=== PATIENT | male | born 1975 | race Caucasian/White ===

== ENCOUNTER 2021-03-06 12:15 | Inpatient (IN) | payer MEDICAID, OTHER ==
[~2021-03-06] VITALS: Ht 175.3 cm; Wt 98.7 kg
[~2021-03-06 12:15] MED LIST: CEPH-582 PO; CLIN300C3 PO
[2021-03-06] MEDS ORDERED: DEXTROSE 50%-WATER 25 GM/50 ML SYRINGE IVP PRN (14:30)
[2021-03-06] MEDS ORDERED: OxyCODONE HCL/ACETAMINOPHEN 5-325 MG TABLET PO PRN (14:45)
[2021-03-06] MEDS ORDERED: ZOLPIDEM TARTRATE 5 MG TABLET PO PRN (14:45)
[2021-03-06] MEDS ORDERED: ONDANSETRON HCL 4 MG/2 ML VIAL IVP PRN ×2 (14:45)
[2021-03-06] MEDS ORDERED: ACETAMINOPHEN 325 MG TABLET PO PRN ×2 (14:45)
[2021-03-06] MEDS ORDERED: 0.9% SODIUM CHLORIDE 10 ML SYRINGE IVP PRN (14:45)
[2021-03-06] MEDS ORDERED: ONDANSETRON HCL 4 MG/2 ML VIAL IVP ONE (14:45)
[2021-03-06] MEDS ORDERED: VANCOMYCIN HCL 1.5 GM in DEXTROSE 5%-WATER 250 ML IV ONE (15:00)
[2021-03-06] MEDS: SODIUM CHLORIDE 0.9% 1,000 ML IV SCH ×2 (17:46→23:07)
[2021-03-06] MEDS: MORPHINE SULFATE 4 MG/ML SYRINGE IVP ONE ×2 (17:48→21:00)
[2021-03-06] MEDS: HEPARIN SODIUM,PORCINE 5,000 UNITS/ML VIAL SQ SCH ×2 (17:48→23:06)
[2021-03-06] MEDS ORDERED: SODIUM CHLORIDE 0.9% 1,000 ML IV ONE (18:15)
[2021-03-06 18:18] LABS: BASOPHILS % (AUTO) 0.4 % (0.0-2.0); EOSINOPHILS % (AUTO) 0.1 % (1.0-6.0); HEMATOCRIT 43.4 % (41-53); HEMOGLOBIN 14.3 g/dL (13.5-17.5); LYMPHOCYTES # (AUTO) 1.2 K/uL (1.0-4.8); LYMPHOCYTES % (AUTO) 6.6 % (22.0-44.0); MEAN CORPUSCULAR HEMOGLOBIN 29.2 pg (26.0-34.0); MEAN CORPUSCULAR VOLUME 89 fL (80-100); MONOCYTES % (AUTO) 5.4 % (2.0-9.0); RED CELL DISTRIBUTION WIDTH 13.5 % (11.5-14.5)
[2021-03-06 18:30] LABS: NEUTROPHILS % (AUTO) 87.5 % (40.0-70.0)
[2021-03-06 18:52] LABS: PLATELET COUNT (AUTO) 226 K/uL (150-450)
[2021-03-06] MEDS: DOCUSATE SODIUM 100 MG CAPSULE PO SCH (21:00)
[2021-03-06 21:09] LABS: COVID AG,FIA SOURCE NASOPHARYNGEAL
[2021-03-06 21:17] LABS: APPEARANCE,URINE CLEAR (CLEAR); BILIRUBIN,URINE NEGATIVE (NEGATIVE); GLUCOSE, URINE (UA) 100 mg/dL (NEGATIVE); KETONES,URINE TRACE mg/dL (NEGATIVE); LEUKOCYTE ESTERASE ,URINE NEGATIVE (NEGATIVE); NITRATE,URINE NEGATIVE (NEGATIVE); OCCULT BLOOD,URINE NEGATIVE (NEGATIVE); PH,URINE 7.5 (5.0-8.0); PROTEIN,URINE NEGATIVE (NEGATIVE)
[2021-03-06 21:31] LABS: AMPHET/METH SCREEN,URINE POSITIVE (NEGATIVE); BARBITURATE SCREEN, URINE NEGATIVE (NEGATIVE); BENZODIAZEPINES SCREEN,URINE NEGATIVE (NEGATIVE); CANNABINOID SCREEN,URINE NEGATIVE (NEGATIVE); COCAINE SCREEN,URINE NEGATIVE (NEGATIVE); METHADONE SCREEN, URINE NEGATIVE (NEGATIVE); OPIATE SCREEN,URINE NEGATIVE (NEGATIVE)
[2021-03-06 21:33] LABS: PHENCYCLIDINE SCREEN,URINE NEGATIVE (NEGATIVE)
[2021-03-06 21:45] LABS: BACTERIA,URINE None Seen /HPF (None Seen); RBC,URINE None Seen /HPF (0-2)
[2021-03-06 22:34] LABS: ALANINE AMINOTRANSFERASE 24 U/L (12-78); ALBUMIN 3.2 g/dL (3.4-5.0); ALKALINE PHOSPHATASE 113 U/L (46-116); ANION GAP 3 mmol/L (8-16); ASPARTATE AMINOTRANSFERASE 13 U/L (15-37); BILIRUBIN,TOTAL 1.3 mg/dL (0.1-1.0); CALCIUM, TOTAL 8.6 mg/dL (8.8-10.5); CARBON DIOXIDE 31 mmol/L (22-29); CHLORIDE 97 mmol/L (98-107); CREATININE 1.24 mg/dL (0.60-1.30); GLOMERULAR FILTR. RATE CALC > 60 mL/min (>60); GLUCOSE,RANDOM 196 mg/dL (70-110); POTASSIUM 4.3 mmol/L (3.5-5.1); SODIUM SERUM 131 mmol/L (136-145); TOTAL PROTEIN, SERUM 7.2 g/dL (6.4-8.2); UREA NITROGEN, BLOOD 14 mg/dL (7-18)
[2021-03-06 23:00] VITALS: BP 154/78
[2021-03-06] MEDS: OxyCODONE HCL/ACETAMINOPHEN 5-325 MG TABLET PO PRN (23:06)
[2021-03-06] MEDS ORDERED: VANCOMYCIN HCL 1 GM/D5% WATER 200 ML IV ONE (23:59)
[2021-03-07 05:59] VITALS: BP 122/76
[2021-03-07] MEDS: SODIUM CHLORIDE 0.9% 1,000 ML IV SCH ×3 (06:45→23:51)
[2021-03-07 07:08] LABS: GLUCOMETER DEV NAME(LOC) 5S.2B; GLUCOSE,POINT OF CARE 104 MG/DL (70-110)
[2021-03-07 07:45] VITALS: BP 121/74
[2021-03-07] MEDS: FAMOTIDINE 20 MG TABLET PO SCH (08:31)
[2021-03-07] MEDS: DOCUSATE SODIUM 100 MG CAPSULE PO SCH ×2 (08:31→20:28)
[2021-03-07] MEDS: HEPARIN SODIUM,PORCINE 5,000 UNITS/ML VIAL SQ SCH ×3 (08:31→23:52)
[2021-03-07] MEDS: VANCOMYCIN HCL 1 GM/D5% WATER 200 ML IV SCH ×3 (08:31→23:51)
[2021-03-07 11:13] VITALS: BP 117/72
[2021-03-07 12:01] LABS: ANION GAP 7 mmol/L (8-16); CALCIUM, TOTAL 8.2 mg/dL (8.8-10.5); CARBON DIOXIDE 26 mmol/L (22-29); CHLORIDE 100 mmol/L (98-107); CREATININE 1.02 mg/dL (0.60-1.30); GLOMERULAR FILTR. RATE CALC > 60 mL/min (>60); GLUCOSE,RANDOM 182 mg/dL (70-110); POTASSIUM 3.7 mmol/L (3.5-5.1); SODIUM SERUM 133 mmol/L (136-145); UREA NITROGEN, BLOOD 12 mg/dL (7-18)
[2021-03-07 15:59] VITALS: BP 116/70
[2021-03-07 17:41] LABS: GLUCOMETER DEV NAME(LOC) 5S.2B; GLUCOSE,POINT OF CARE 151 MG/DL (70-110)
[2021-03-07] MEDS: INSULIN LISPRO 100 UNITS/ML SQ PRN (18:04)
[2021-03-07 19:31] VITALS: BP 120/70
[2021-03-08] VITALS (7 sets, daily range): BP systolic 109–124; BP diastolic 70–91
[2021-03-08] MEDS: SODIUM CHLORIDE 0.9% 1,000 ML IV SCH ×3 (03:00→16:33)
[2021-03-08 04:17] LABS: GLUCOMETER DEV NAME(LOC) 5S.2B; GLUCOSE,POINT OF CARE 202 MG/DL (70-110)
[2021-03-08 04:17] LABS: GLUCOMETER DEV NAME(LOC) 5S.2B; GLUCOSE,POINT OF CARE 140 MG/DL (70-110)
[2021-03-08] MEDS: DOCUSATE SODIUM 100 MG CAPSULE PO SCH ×2 (08:34→20:43)
[2021-03-08] MEDS: VANCOMYCIN HCL 1 GM/D5% WATER 200 ML IV SCH ×2 (08:34→16:32)
[2021-03-08] MEDS: HEPARIN SODIUM,PORCINE 5,000 UNITS/ML VIAL SQ SCH ×2 (08:35→16:00)
[2021-03-08 09:02] LABS: ANION GAP 3 mmol/L (8-16); CALCIUM, TOTAL 8.2 mg/dL (8.8-10.5); CARBON DIOXIDE 30 mmol/L (22-29); CHLORIDE 103 mmol/L (98-107); CREATININE 0.94 mg/dL (0.60-1.30); GLOMERULAR FILTR. RATE CALC > 60 mL/min (>60); GLUCOSE,RANDOM 145 mg/dL (70-110); POTASSIUM 3.8 mmol/L (3.5-5.1); SODIUM SERUM 136 mmol/L (136-145); UREA NITROGEN, BLOOD 11 mg/dL (7-18); VANCOMYCIN,RANDOM 10.7 mcg/mL (25.0-50.0)
[2021-03-08] MEDS: FAMOTIDINE 20 MG TABLET PO SCH (10:24)
[2021-03-08] MEDS: PIPERACILLIN/TAZO 3.375 GM/D5W 50 ML IV SCH ×3 (11:59→23:00)
[2021-03-08] MEDS: OxyCODONE HCL/ACETAMINOPHEN 5-325 MG TABLET PO PRN (16:31)
[2021-03-08] MEDS: INSULIN LISPRO 100 UNITS/ML SQ PRN (17:52)
[2021-03-08 21:20] LABS: GLUCOMETER DEV NAME(LOC) 5N.3; GLUCOSE,POINT OF CARE 138 MG/DL (70-110)
[2021-03-09 02:05] LABS: GLUCOMETER DEV NAME(LOC) 5S.1; GLUCOSE,POINT OF CARE 109 MG/DL (70-110)
[2021-03-09 02:06] LABS: GLUCOMETER DEV NAME(LOC) 5S.1; GLUCOSE,POINT OF CARE 168 MG/DL (70-110)
[2021-03-09 04:00] VITALS: BP 111/59
[2021-03-09] MEDS: PIPERACILLIN/TAZO 3.375 GM/D5W 50 ML IV SCH ×4 (05:23→22:14)
[2021-03-09] MEDS: INSULIN LISPRO 100 UNITS/ML SQ PRN ×4 (06:09→21:04)
[2021-03-09] MEDS: SODIUM CHLORIDE 0.9% 1,000 ML IV SCH ×3 (06:45→22:14)
[2021-03-09 06:57] LABS: BASOPHILS % (AUTO) 0.6 % (0.0-2.0); EOSINOPHILS % (AUTO) 4.6 % (1.0-6.0); HEMATOCRIT 36.9 % (41-53); HEMOGLOBIN 12.4 g/dL (13.5-17.5); LYMPHOCYTES # (AUTO) 1.6 K/uL (1.0-4.8); MEAN CORPUSCULAR HEMOGLOBIN 29.2 pg (26.0-34.0); MEAN CORPUSCULAR HGB CONC 33.5 G/dL (31.0-37.0); MEAN CORPUSCULAR VOLUME 87 fL (80-100); MONOCYTES # (AUTO) 0.5 K/uL (0.1-1.0); MONOCYTES % (AUTO) 7.8 % (2.0-9.0); NEUTROPHILS # (AUTO) 4.5 K/uL (1.8-7.7); PLATELET COUNT (AUTO) 246 K/uL (150-450); RED BLOOD CELL COUNT(AUTO) 4.24 MIL/uL (4.50-5.90); RED CELL DISTRIBUTION WIDTH 13.3 % (11.5-14.5)
[2021-03-09 07:00] LABS: ANION GAP 9 mmol/L (8-16); CALCIUM, TOTAL 8.4 mg/dL (8.8-10.5); CARBON DIOXIDE 27 mmol/L (22-29); CHLORIDE 102 mmol/L (98-107); CREATININE 0.96 mg/dL (0.60-1.30); GLOMERULAR FILTR. RATE CALC > 60 mL/min (>60); GLUCOSE,RANDOM 283 mg/dL (70-110); POTASSIUM 3.6 mmol/L (3.5-5.1); SODIUM SERUM 138 mmol/L (136-145); UREA NITROGEN, BLOOD 11 mg/dL (7-18)
[2021-03-09 07:07] VITALS: BP 122/62
[2021-03-09 07:09] VITALS: BP 98/62
[2021-03-09 08:00] LABS: GLUCOMETER DEV NAME(LOC) 5S.1; GLUCOSE,POINT OF CARE 275 MG/DL (70-110)
[2021-03-09] MEDS: DOCUSATE SODIUM 100 MG CAPSULE PO SCH ×2 (08:03→20:53)
[2021-03-09] MEDS: VANCOMYCIN HCL 1 GM/D5% WATER 200 ML IV SCH ×3 (08:03→16:14)
[2021-03-09] MEDS: FAMOTIDINE 20 MG TABLET PO SCH (08:04)
[2021-03-09] MEDS: HEPARIN SODIUM,PORCINE 5,000 UNITS/ML VIAL SQ SCH ×3 (08:04→16:14)
[2021-03-09 11:25] VITALS: BP 111/76
[2021-03-09 15:01] VITALS: BP 106/72
[2021-03-09 17:30] LABS: GLUCOMETER DEV NAME(LOC) 5N.1C; GLUCOSE,POINT OF CARE 183 MG/DL (70-110)
[2021-03-09 17:51] LABS: GLUCOMETER DEV NAME(LOC) 5N.1C; GLUCOSE,POINT OF CARE 225 MG/DL (70-110)
[2021-03-09 19:55] VITALS: BP 109/59
[2021-03-10 00:18] LABS: GLUCOMETER DEV NAME(LOC) 5S.1; GLUCOSE,POINT OF CARE 203 MG/DL (70-110)
[2021-03-10 00:23] VITALS: BP 105/60
[2021-03-10] MEDS: HEPARIN SODIUM,PORCINE 5,000 UNITS/ML VIAL SQ SCH ×2 (00:28→08:00)
[2021-03-10] MEDS: VANCOMYCIN HCL 1 GM/D5% WATER 200 ML IV SCH ×2 (00:29→07:59)
[2021-03-10 05:18] VITALS: BP 121/79
[2021-03-10] MEDS: PIPERACILLIN/TAZO 3.375 GM/D5W 50 ML IV SCH ×2 (05:43→11:30)
[2021-03-10] MEDS: INSULIN LISPRO 100 UNITS/ML SQ PRN ×2 (05:44→11:47)
[2021-03-10 06:20] LABS: BASOPHILS % (AUTO) 0.6 % (0.0-2.0); EOSINOPHILS % (AUTO) 5.4 % (1.0-6.0); HEMATOCRIT 39.9 % (41-53); HEMOGLOBIN 13.4 g/dL (13.5-17.5); LYMPHOCYTES # (AUTO) 2.2 K/uL (1.0-4.8); LYMPHOCYTES % (AUTO) 30.5 % (22.0-44.0); MEAN CORPUSCULAR HEMOGLOBIN 29.6 pg (26.0-34.0); MEAN CORPUSCULAR HGB CONC 33.5 G/dL (31.0-37.0); MEAN CORPUSCULAR VOLUME 88 fL (80-100); MONOCYTES # (AUTO) 0.6 K/uL (0.1-1.0); MONOCYTES % (AUTO) 8.6 % (2.0-9.0); NEUTROPHILS # (AUTO) 3.9 K/uL (1.8-7.7); NEUTROPHILS % (AUTO) 54.9 % (40.0-70.0); PLATELET COUNT (AUTO) 300 K/uL (150-450); RED BLOOD CELL COUNT(AUTO) 4.52 MIL/uL (4.50-5.90); RED CELL DISTRIBUTION WIDTH 13.5 % (11.5-14.5)
[2021-03-10 06:39] LABS: ANION GAP 4 mmol/L (8-16); CALCIUM, TOTAL 8.6 mg/dL (8.8-10.5); CARBON DIOXIDE 29 mmol/L (22-29); CHLORIDE 105 mmol/L (98-107); CREATININE 0.94 mg/dL (0.60-1.30); GLOMERULAR FILTR. RATE CALC > 60 mL/min (>60); GLUCOSE,RANDOM 178 mg/dL (70-110); SODIUM SERUM 138 mmol/L (136-145); UREA NITROGEN, BLOOD 9 mg/dL (7-18); VANCOMYCIN,RANDOM 18.8 mcg/mL (25.0-50.0)
[2021-03-10] MEDS: SODIUM CHLORIDE 0.9% 1,000 ML IV SCH ×2 (06:45→14:45)
[2021-03-10 06:50] LABS: HEMOGLOBIN A1C 6.5 % (3.8-5.6)
[2021-03-10 07:37] VITALS: BP 112/71
[2021-03-10] MEDS: DOCUSATE SODIUM 100 MG CAPSULE PO SCH (08:00)
[2021-03-10] MEDS: FAMOTIDINE 20 MG TABLET PO SCH (08:00)
[2021-03-10 11:11] VITALS: BP 113/71
[2021-03-10 14:54] LABS: GLUCOMETER DEV NAME(LOC) 5S.1; GLUCOSE,POINT OF CARE 185 MG/DL (70-110)
[2021-03-10 20:35] LABS: GLUCOMETER DEV NAME(LOC) 5N.3; GLUCOSE,POINT OF CARE 185 MG/DL (70-110)
== END 2021-03-10 16:30 | DRG 720 ==
LOC: EMS 12:21 → 5S 21:00
PROVIDERS: ADMIT Internal Medicine; ATTEND Internal Medicine
DX: A41.9 Sepsis, unspecified organism (principal); E87.1 Hypo-osmolality and hyponatremia; L03.115 Cellulitis of right lower limb; Z20.822 Contact with and (suspected) exposure to COVID-19; T63.391A Toxic effect of venom of other spider, accidental (unintentional), initial encounter; E11.65 Type 2 diabetes mellitus with hyperglycemia; Z59.00 Homelessness unspecified; Z79.4 Long term (current) use of insulin; Z83.3 Family history of diabetes mellitus; Y92.89 Other specified places as the place of occurrence of the external cause
CPT/HCPCS: 80048; 80053; 80202; 81001; 82962; 83036; 85025; 87040; 87070; 87077; 87186; 87205; 93005; 99285; G0378; J1644; J2270; J2405; J2543; J3370; J7030; J7060

== ENCOUNTER 2021-10-22 06:57 | Emergency (ER) | payer OTHER ==
[~2021-10-22] VITALS: Ht 170.2 cm; Wt 91.9 kg
[~2021-10-22 06:57] MED LIST changes: -CLIN300C3 PO; +CLIN300C58 PO
[2021-10-22] MEDS ORDERED: CeFAZolin 1 GM/DEXTROSE 50 ML IV ONE (07:15)
[2021-10-22] MEDS ORDERED: LIDOCAINE 1% 20 ML VIAL ID ONE (07:15)
[2021-10-22] MEDS ORDERED: LIDOCAINE 1% 10 ML VIAL ONE (07:15)
[2021-10-22] MEDS ORDERED: PERTUSS(ACELL),DIPH,TET VAC/PF 0.5 ML SYRINGE IM. ONE (07:15)
[2021-10-22] MEDS ORDERED: HYDROGEN PEROXIDE 118 ML SOLUTION ONE (08:15)
[2021-10-22] MEDS ORDERED: HYDROGEN PEROXIDE 118 ML SOLUTION TP ONE (08:15)
[2021-10-22] MEDS ORDERED: IBUP-2070 PO (10:17)
[2021-10-22] MEDS ORDERED: CEPH-558 PO ×2 (10:17→10:25)
[2021-10-22 11:07] VITALS: BP 148/88
== END 2021-10-22 11:08 | disposition home or self-care (01) ==
LOC: EMS 06:58
DX: S01.511A Laceration without foreign body of lip, initial encounter (principal); E11.9 Type 2 diabetes mellitus without complications; X58.XXXA Exposure to other specified factors, initial encounter; Y93.89 Activity, other specified; Y92.89 Other specified places as the place of occurrence of the external cause; Y99.8 Other external cause status
CPT/HCPCS: 12011; 90471; 90715; 96365; 99284; J0690; J3490

== ENCOUNTER 2024-10-18 21:46 | Emergency (ER) | payer OTHER ==
[~2024-10-18] VITALS: Ht 177.8 cm; Wt 87.7 kg
[~2024-10-18 21:46] MED LIST changes: +CEPH-558 PO; +IBUP-1492 PO
[2024-10-18 21:52] VITALS: TEMP 97.9
[2024-10-18 23:30] VITALS: BP 119/71; PULSE 99; RESP 17; O2SAT 98
[2024-10-19 00:15] LABS: COVID AG,FIA SOURCE NASAL SWAB
[2024-10-19] MEDS: ACETAMINOPHEN 500 MG TABLET PO ONE (00:38)
[2024-10-19] MEDS: DOXYCYCLINE HYCLATE 100 MG TABLET PO ONE (00:39)
[2024-10-19] MEDS: IBUPROFEN 400 MG TABLET PO ONE (00:39)
[2024-10-19] MEDS: BENZONATATE 100 MG CAPSULE PO ONE (00:39)
[2024-10-19 00:41] LABS: INFLUENZA TYPE A NEGATIVE FOR TYPE A (NEGATIVE); INFLUENZA TYPE B NEGATIVE FOR TYPE B (NEGATIVE); SARS-COV2 (COVID) ANTIGEN,FIA Negative (Negative)
[2024-10-19] MEDS ORDERED: DOXY-354 PO (01:34)
[2024-10-19] MEDS ORDERED: BENZ-227 PO (01:34)
== END 2024-10-19 02:25 | disposition home or self-care (01) ==
LOC: EMS 21:46
DX: L03.317 Cellulitis of buttock (principal); L02.31 Cutaneous abscess of buttock; J06.9 Acute upper respiratory infection, unspecified; E11.9 Type 2 diabetes mellitus without complications; Z79.1 Long term (current) use of non-steroidal anti-inflammatories (NSAID); Z79.899 Other long term (current) drug therapy; Z20.822 Contact with and (suspected) exposure to COVID-19
CPT/HCPCS: 87070; 87205; 87804; 99284; Z7502; Z7610